=== PATIENT | male | born 1980 | race African-American/Black ===

== ENCOUNTER 2024-07-10 20:04 | Emergency (ER) | payer SELFPAY ==
[2024-07-10 20:08] VITALS: BP 138/74
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
== END 2024-07-10 23:21 | disposition home or self-care (01) ==
LOC: EMR 20:04
PROVIDERS: EMERGENCY PHYSICIAN Emergency Medicine; FAMILY PHYSICIAN Nurse Practitioner Family
DX: M54.50 Low back pain, unspecified (principal); M54.6 Pain in thoracic spine; V49.40XA Driver injured in collision with unspecified motor vehicles in traffic accident, initial encounter
CPT/HCPCS: 99282

== ENCOUNTER → 2024-08-10 07:15 | Outpatient (REF) | payer BC, SELFPAY | LOC: HWRAD 07:15 | PROVIDERS: ATTENDING PHYSICIAN Nurse Practitioner Family | DX: E04.1 Nontoxic single thyroid nodule (principal); N43.3 Hydrocele, unspecified | CPT/HCPCS: 76536; 76870; 93976 ==

== ENCOUNTER → 2024-08-23 08:25 | Outpatient (REF) | payer BC, SELFPAY ==
[2024-08-23 08:43] VITALS: BP 119/81; BP_SYST 79
== END ==
LOC: RADI 08:25
PROVIDERS: ATTENDING PHYSICIAN Nurse Practitioner Family
DX: E04.1 Nontoxic single thyroid nodule (principal)
CPT/HCPCS: 88173; 10005

== ENCOUNTER 2024-09-19 06:15 | Day surgery (SDC) | payer BC, SELFPAY ==
[2024-09-14 08:56] LABS: Hematocrit 41.3 % (39.0-52.0); Hemoglobin 14.4 g/dL (13.0-18.0); Mean Corp Hgb Conc. 34.9 g/dL (33.0-37.0); Mean Corpuscular Hgb 27.4 pg (27.0-31.0); Mean Corpuscular Volume 78.7 fL (80.0-94.0); Mean Platelet Volume 10.1 fL (7.4-10.4); Platelet Count 221 10^3/uL (130-400); Red Blood Cell Count 5.25 10^6/uL (4.70-6.10); Red Cell Dist. Width 13.7 % (11.5-14.5); White Blood Cell Count 5.7 10^3/uL (4.8-10.8)
[2024-09-14 09:12] LABS: INR 1.02
[2024-09-14 09:13] LABS: APTT 27.4 Sec (23.4-35.0)
[2024-09-14 10:04] LABS: ALT (SGPT) 23 U/L (0-50); AST (SGOT) 28 U/L (17-59); Albumin 4.5 g/dl (3.5-5.0); Alkaline Phosphatase 61 U/L (38-126); Blood Urea Nitrogen 23 mg/dl (9-20); Calcium 9.6 mg/dl (8.4-10.2); Carbon Dioxide 32 mmol/L (22-30); Chloride 102 mmol/L (98-107); Glucose 84 mg/dl (70-99); Potassium 4.6 mmol/L (3.5-5.1); Sodium 139 mmol/L (135-145); Total Bilirubin 0.6 mg/dl (0.2-1.3); Total Protein 7.1 g/dl (6.3-8.2); eGFR > 60.00
[2024-09-14 14:19] VITALS: BMI 26.5
--- NOTE | 2024-09-14 15:56 | PTCARENOTE ---
Abn ECG, Dr. Renner made aware, no additional interventions requested.
[2024-09-19] VITALS (9 sets, daily range): BP systolic 118–123; BP diastolic 68–78; BMI 26.5
[2024-09-19] MEDS: NEURONTIN 300 MG PO (12:05)
[2024-09-19] MEDS: TYLENOL 1000 MG PO (12:05)
[2024-09-19] MEDS: HEPARIN 5000 UNITS SC (12:06)
--- NOTE | 2024-09-19 14:09 | OR.RPT ---
Operative Report
Operative Report
DATE OF OPERATION: September 19, 2024
PREOPERATIVE DIAGNOSIS: Right Thyroid Nodule - E041
POSTOPERATIVE DIAGNOSIS: Same
SURGEON: Florian Castillo M.D.
OPERATION: Right Thyroidectomy and Limited Neck Dissection � 03496
�������������������Autotransplant of the right superior parathyroid gland - 38540
ANESTHESIA: GET
ESTIMATED BLOOD LOSS: 10 cc
DRAINS: None
SPECIMEN: right total thyroid lobe and isthmus and right level paratracheal tissue
FINDINGS: thyroid nodules
COMPLICATIONS:� None
PROCEDURE:
The patient was taken to the operating room and placed in the usual supine position. After adequate general endotracheal anesthesia was established, the patient�s neck was extended, prepped, and draped in the typical sterile fashion. A 5 cm
transcervical incision was made two fingerbreadths above the sternal notch. The skin incision was made with the #15 blade, which was taken through the skin into the subcutaneous tissue. The underlying platysma muscle was divided, and subplatysmal
flaps were created superiorly to the thyroid cartilage and inferiorly to the sternal notch. Strap muscles were identified and at the midline.
Attention was turned to the patient�s right thyroid lobe. The right thyroid lobe was mobilized medially. During this process, the right middle thyroid vein and inferior thyroid artery were dissected and ligated with Ligasure. Next, the right
superior pole was taken down by dissecting and transecting the superior pole vessels with a Ligasure. The right thyroid lobe was mobilized medially. During this process, the right recurrent laryngeal nerve was identified and preserved throughout its
entire course. The right superior parathyroid gland was identified, but became ischemic, so it was autotransplanted in the right SCM after mincing the gland. The right thyroid lobe with isthmus was resected off the trachea and sent to the pathology
department.
At this time, the right neck dissection was performed. The tissue between the right carotid artery to the trachea into the anterior mediastinum was carefully dissected. The previously identified recurrent laryngeal nerve and parathyroid glands were
preserved. The tissue was removed and sent to the pathology department.
After obtaining adequate hemostasis, the strap muscle was approximated with #3-0 Vicryl in a running fashion, and platysma muscles were reapproximated with #3-0 Vicryl in an interrupted fashion, and the skin was approximated with #4-0 Monocryl in a
running subcuticular fashion. Steri-strips and sterile dressings were placed. The patient tolerated the procedure well. The final instrument, needle, and sponge counts were correct.
== END 2024-09-19 15:57 | disposition home or self-care (01) ==
LOC: SDS 06:15
PROVIDERS: ATTENDING PHYSICIAN Surgery; FAMILY PHYSICIAN Nurse Practitioner Family
DX: D34 Benign neoplasm of thyroid gland (principal); E04.1 Nontoxic single thyroid nodule
CPT/HCPCS: 60252; 60512; 88305; 88307; 36415; 80053; 85027; 85610; 85730; 93005; C1776